=== PATIENT | male | born 1955 ===

== ENCOUNTER 2022-08-11 05:31 | Day surgery (SDC) | payer OTHER | END 2022-08-11 10:30 | disposition home or self-care (01) | LOC: AMB-ENDOS 05:31 | PROVIDERS: ATTEND Colon & Rectal Surgery | DX: Z87.19 Personal history of other diseases of the digestive system (principal); K92.2 Gastrointestinal hemorrhage, unspecified; R19.5 Other fecal abnormalities; K64.8 Other hemorrhoids; E78.5 Hyperlipidemia, unspecified; E03.9 Hypothyroidism, unspecified ==

== ENCOUNTER 2022-10-15 11:00 | Inpatient (IN) | payer OTHER ==
[~2022-10-15 11:00] MED LIST: ALLOPURINOL; SYNTHROID88 MCG PO
[2022-10-20] MEDS ORDERED: ALLOPURINOL300 MG (08:55)
[2022-10-20] MEDS ORDERED: EZETIMIBE10 MG (08:55)
[2022-10-20] MEDS ORDERED: SYNTHROID50 MCG (08:56)
[2022-10-20] MEDS ORDERED: VITAMIN D3250 MCG (08:56)
[2022-10-20] MEDS ORDERED: VITAMIN B-121000 MCG (08:56)
[2022-10-20] MEDS ORDERED: CYANOCOBAL1000 MCG/1 (08:56)
== END 2022-10-23 18:07 | disposition home or self-care (01) | DRG 330 ==
LOC: O/R 10-20 06:00 → SURH 10-20 06:00
PROVIDERS: ADMIT Colon & Rectal Surgery; ATTEND Colon & Rectal Surgery
PROC: 0DBP4ZZ Excision of Rectum, Percutaneous Endoscopic Approach (ICD-10-PCS; 2022-10-20)
PROC: 0DTN4ZZ Resection of Sigmoid Colon, Percutaneous Endoscopic Approach (ICD-10-PCS; 2022-10-20)
PROC: 0WQF4ZZ Repair Abdominal Wall, Percutaneous Endoscopic Approach (ICD-10-PCS; 2022-10-20)
PROC: 0DQN4ZZ Repair Sigmoid Colon, Percutaneous Endoscopic Approach (ICD-10-PCS; 2022-10-20)
PROC: 0DQ84ZZ Repair Small Intestine, Percutaneous Endoscopic Approach (ICD-10-PCS; principal; 2022-10-20 07:00)
DX: K57.20 Diverticulitis of large intestine with perforation and abscess without bleeding (principal); K91.71 Accidental puncture and laceration of a digestive system organ or structure during a digestive system procedure; I10 Essential (primary) hypertension; E03.8 Other specified hypothyroidism; K43.5 Parastomal hernia without obstruction or gangrene